=== PATIENT | female | born 1950 | race Hispanic/Latino ===

== ENCOUNTER 2017-07-09 15:54 | Inpatient (IN) | payer MEDICARE ==
[~2017-07-09] VITALS: Ht 157.5 cm; Wt 97.8 kg
[~2017-07-09 15:54] MED LIST: ACET-66 PO; AMOX-420 PO; ASPI-1197 PO; CALC667C10 PO; CARV3.12 PO; CYAN10009 PO; DOXY100C40 PO; ESCI20TA36 PO; FOLI0.8T22 PO; LORA10TA7 PO; LOSA25TA21 PO; METO50TA18 PO; PRAV40TA3 PO; SEVE800T7 PO; TRAZ-144 PO
[2017-07-09 17:33] LABS: BASOPHILS % (AUTO) 0.8 % (0.0-5.0); EOSINOPHILS % (AUTO) 5.3 % (0.0-8.0); HEMATOCRIT 33.2 % (36-48); LYMPHOCYTES % (AUTO) 27.8 % (21.0-51.0); MEAN CORPUSCULAR HEMOGLOBIN 31.1 pg (27.0-33.0); MEAN CORPUSCULAR HGB CONC 32.1 g/dL (32.0-36.0); MEAN CORPUSCULAR VOLUME 97.1 fL (79-99); MONOCYTES % (AUTO) 7.6 % (3.0-13.0); NEUTROPHILS % (AUTO) 58.5 % (40.0-77.0); PLATELET COUNT (AUTO) 117 K/uL (130-400); RED BLOOD CELL COUNT(AUTO) 3.42 MIL/uL (4.00-5.50); WHITE BLOOD COUNT (AUTO) 8.1 K/uL (4.8-10.8)
[2017-07-09 17:40] LABS: CREATININE 6.5 mg/dL (0.5-1.5); POTASSIUM 4.7 mmol/L (3.5-5.1)
[2017-07-09 17:45] LABS: ALBUMIN 2.6 g/dL (3.5-5.0); BILIRUBIN,TOTAL 0.5 mg/dL (0.2-1.0); TOTAL PROTEIN, SERUM 7.5 g/dL (6.0-8.3)
[2017-07-09] MEDS ORDERED: ACETAMINOPHEN 325 MG TAB ONE (19:35)
[2017-07-09] MEDS ORDERED: IPRATROPIUM/ALBUTEROL SULFATE 3 ML SOLUTION IH ONE (19:56)
[2017-07-09] MEDS ORDERED: DEXTROSE 50%-WATER 50 ML DISP.SYRIN IV PRN (20:30)
[2017-07-09] MEDS ORDERED: GLUCAGON 1MG KIT 1 MG ML IM PRN (20:30)
[2017-07-09] MEDS ORDERED: COMPOUND IV REFRIGERATED 1 EACH IVSOLN MISC PRN (20:30)
[2017-07-09] MEDS ORDERED: VANCOMYCIN PROTOCOL PER PHARMACY IV SCH (20:30)
[2017-07-09 20:55] VITALS: BP 136/73
[2017-07-09] MEDS ORDERED: VANCOMYCIN 2 GM in SODIUM CHLORIDE 0.9% 500ML 500 ML IV ONE (21:00)
[2017-07-09] MEDS: INSULIN R PO SS1 SQ SCH (21:00)
[2017-07-09] MEDS ORDERED: FOLI1TAB15 PO (21:34)
[2017-07-09] MEDS ORDERED: LOSA50TA37 PO (21:34)
[2017-07-09] MEDS ORDERED: BIOT10005 PO (21:34)
[2017-07-09] MEDS ORDERED: SEVE800T7 PO (21:34)
[2017-07-09] MEDS: LEVOFLOXACIN 250 MG/D5W 50ML 50 ML IVPB SCH (22:14)
[2017-07-10] VITALS: BP 142/60
[2017-07-10 04:00] VITALS: BP 142/76
[2017-07-10 04:56] LABS: HEMATOCRIT 32.8 % (36-48); MEAN CORPUSCULAR HEMOGLOBIN 31.5 pg (27.0-33.0); MEAN CORPUSCULAR HGB CONC 32.6 g/dL (32.0-36.0); MEAN CORPUSCULAR VOLUME 96.5 fL (79-99); PLATELET COUNT (AUTO) 111 K/uL (130-400); RED BLOOD CELL COUNT(AUTO) 3.39 MIL/uL (4.00-5.50); RED CELL DISTRIBUTION WIDTH 16.7 % (11.0-15.5); WHITE BLOOD COUNT (AUTO) 9.1 K/uL (4.8-10.8)
[2017-07-10 05:10] LABS: CREATININE 7.2 mg/dL (0.5-1.5)
[2017-07-10] MEDS: INSULIN R PO SS1 SQ SCH ×4 (06:50→20:51)
[2017-07-10 08:33] VITALS: BP 140/74
[2017-07-10] MEDS ORDERED: ACETAMINOPHEN EXTRA STRENGTH 500 MG TABLET PO PRN (09:00)
[2017-07-10] MEDS: OSELTAMIVIR PHOSPHATE 75 MG CAP PO SCH (09:00)
[2017-07-10] MEDS ORDERED: CALCIUM ACETATE 667 MG CAPSULE PO SCH (09:00)
[2017-07-10] MEDS: ASPIRIN 81MG TAB.CHEW PO SCH (09:35)
[2017-07-10] MEDS: METOPROLOL TARTRATE 50 MG TAB PO SCH ×2 (09:35→19:29)
[2017-07-10] MEDS: CYANOCOBALAMIN (VITAMIN B-12) 1,000 MCG TABLET PO SCH (09:35)
[2017-07-10] MEDS: LOSARTAN 50 MG TABLET PO SCH (09:35)
[2017-07-10] MEDS: CITALOPRAM 20 MG TABLET PO SCH (09:35)
[2017-07-10] MEDS: LORATADINE 10 MG TABLET PO SCH (09:35)
[2017-07-10] MEDS: FOLIC ACID 1 MG TABLET PO SCH (09:35)
[2017-07-10] MEDS: VITAMIN B COMPLEX 1 CAPSULE PO SCH (09:36)
[2017-07-10] MEDS ORDERED: COMPOUND PO MISCELLANEOUS 1 EACH MISC MISC PRN (10:15)
[2017-07-10] MEDS: OSELTAMIVIR PHOSPHATE PO SCH ×2 (10:31)
[2017-07-10] MEDS: [UNRECOGNIZED DRUG - OTHER] PO SCH ×2 (10:31)
[2017-07-10] MEDS: CALCIUM ACETATE 667 MG CAPSULE PO SCH ×2 (11:42→17:03)
[2017-07-10 12:00] VITALS: BP 140/70
[2017-07-10] MEDS ORDERED: SEVELAMER HCL 800 MG TABLET PO SCH (12:00)
[2017-07-10 16:56] VITALS: BP 139/74
[2017-07-10] MEDS ORDERED: TRAZODONE HCL 50 MG TAB ONE (19:23)
[2017-07-10] MEDS: ATORVASTATIN CALCIUM 20 MG TABLET PO SCH (19:29)
[2017-07-10] MEDS: TRAZODONE HCL 50 MG TAB PO SCH (19:29)
[2017-07-10] MEDS: LEVOFLOXACIN 250 MG/D5W 50ML 50 ML IVPB SCH (19:29)
[2017-07-10 20:25] VITALS: BP 152/58
[2017-07-11] VITALS (7 sets, daily range): BP systolic 113–148; BP diastolic 46–73
[2017-07-11 04:37] LABS: HEMATOCRIT 31.6 % (36-48); MEAN CORPUSCULAR HEMOGLOBIN 31.3 pg (27.0-33.0); MEAN CORPUSCULAR HGB CONC 32.7 g/dL (32.0-36.0); MEAN CORPUSCULAR VOLUME 95.5 fL (79-99); PLATELET COUNT (AUTO) 114 K/uL (130-400); RED BLOOD CELL COUNT(AUTO) 3.31 MIL/uL (4.00-5.50); RED CELL DISTRIBUTION WIDTH 16.6 % (11.0-15.5)
[2017-07-11 04:45] LABS: PHOSPHORUS 5.5 mg/dL (2.5-4.9); POTASSIUM 4.6 mmol/L (3.5-5.1)
[2017-07-11 04:57] LABS: CREATININE 8.8 mg/dL (0.5-1.5)
[2017-07-11 05:32] LABS: BAND NEUTROPHILS % (MANUAL) 3 % (0-2); EOSINOPHILS % (MANUAL) 10 % (1-6); LYMPHOCYTES % (MANUAL) 22 % (22-44); MONOCYTES % (MANUAL) 5 % (2-9); REACTIVE LYMPHOCYTES 3 % (0-0); SEGMENTED NEUTROPHILS % 57 % (40-70)
[2017-07-11 05:33] LABS: MAN.DIFF COMMENT-IMPRESSION MANUAL DIFFERENTIAL
[2017-07-11] MEDS: INSULIN R PO SS1 SQ SCH ×4 (05:36→22:30)
[2017-07-11] MEDS: CALCIUM ACETATE 667 MG CAPSULE PO SCH ×3 (08:12→17:04)
[2017-07-11] MEDS: CYANOCOBALAMIN (VITAMIN B-12) 1,000 MCG TABLET PO SCH (08:12)
[2017-07-11] MEDS: VITAMIN B COMPLEX 1 CAPSULE PO SCH (08:13)
[2017-07-11] MEDS: METOPROLOL TARTRATE 50 MG TAB PO SCH ×2 (08:13→22:10)
[2017-07-11] MEDS: LORATADINE 10 MG TABLET PO SCH (08:13)
[2017-07-11] MEDS: ASPIRIN 81MG TAB.CHEW PO SCH (08:13)
[2017-07-11] MEDS: CITALOPRAM 20 MG TABLET PO SCH (08:13)
[2017-07-11] MEDS: FOLIC ACID 1 MG TABLET PO SCH (08:13)
[2017-07-11] MEDS: OSELTAMIVIR PHOSPHATE 75 MG CAP PO SCH (08:14)
[2017-07-11] MEDS: LOSARTAN 50 MG TABLET PO SCH (08:14)
[2017-07-11] MEDS: [UNRECOGNIZED DRUG - OTHER] PO SCH ×2 (09:00)
[2017-07-11] MEDS: OSELTAMIVIR PHOSPHATE PO SCH ×2 (09:00)
[2017-07-11] MEDS ORDERED: HEPARIN SODIUM 5000UNIT/ML 1ML VIAL IJ PRN (11:45)
[2017-07-11] MEDS ORDERED: SODIUM CHLORIDE 0.9% 1000ML 1,000 ML IV PRN (11:45)
[2017-07-11] MEDS ORDERED: ALBUMIN (HUMAN) 25% 100 ML IV PRN (11:45)
[2017-07-11] MEDS ORDERED: VANCOMYCIN 1GM+NS 250ML 250 ML IV SCH (13:00)
[2017-07-11] MEDS ORDERED: HYDROXYZINE HCL 25 MG TABLET PO PRN (16:30)
[2017-07-11] MEDS: BENZONATATE 100 MG CAPSULE PO SCH (22:10)
[2017-07-11] MEDS: TRAZODONE HCL 50 MG TAB PO SCH (22:10)
[2017-07-11] MEDS: ATORVASTATIN CALCIUM 20 MG TABLET PO SCH (22:10)
[2017-07-11] MEDS: LEVOFLOXACIN 250 MG/D5W 50ML 50 ML IVPB SCH (22:10)
[2017-07-11] MEDS: NYSTATIN 15 GM POWDER TP SCH (22:10)
[2017-07-12 04:27] VITALS: BP 121/55
[2017-07-12 05:55] LABS: MEAN CORPUSCULAR HEMOGLOBIN 32.3 pg (27.0-33.0); MEAN CORPUSCULAR HGB CONC 33.4 g/dL (32.0-36.0); MEAN CORPUSCULAR VOLUME 96.8 fL (79-99); PLATELET COUNT (AUTO) 102 K/uL (130-400); RED BLOOD CELL COUNT(AUTO) 3.31 MIL/uL (4.00-5.50); WHITE BLOOD COUNT (AUTO) 7.5 K/uL (4.8-10.8)
[2017-07-12 06:12] LABS: CREATININE 7.3 mg/dL (0.5-1.5); POTASSIUM 4.2 mmol/L (3.5-5.1)
[2017-07-12 07:00] VITALS: BP 126/70
[2017-07-12] MEDS: INSULIN R PO SS1 SQ SCH ×4 (07:13→20:47)
[2017-07-12] MEDS: OSELTAMIVIR PHOSPHATE PO SCH ×2 (09:00)
[2017-07-12] MEDS: [UNRECOGNIZED DRUG - OTHER] PO SCH ×2 (09:00)
[2017-07-12] MEDS: OSELTAMIVIR PHOSPHATE 75 MG CAP PO SCH (09:13)
[2017-07-12] MEDS: CALCIUM ACETATE 667 MG CAPSULE PO SCH ×3 (09:13→16:20)
[2017-07-12] MEDS: VITAMIN B COMPLEX 1 CAPSULE PO SCH (09:14)
[2017-07-12] MEDS: LORATADINE 10 MG TABLET PO SCH (09:14)
[2017-07-12] MEDS: FOLIC ACID 1 MG TABLET PO SCH (09:14)
[2017-07-12] MEDS: METOPROLOL TARTRATE 50 MG TAB PO SCH ×2 (09:14→19:59)
[2017-07-12] MEDS: ASPIRIN 81MG TAB.CHEW PO SCH (09:14)
[2017-07-12] MEDS: CYANOCOBALAMIN (VITAMIN B-12) 1,000 MCG TABLET PO SCH (09:14)
[2017-07-12] MEDS: CITALOPRAM 20 MG TABLET PO SCH (09:14)
[2017-07-12] MEDS: BENZONATATE 100 MG CAPSULE PO SCH ×2 (09:14→19:59)
[2017-07-12] MEDS: LOSARTAN 50 MG TABLET PO SCH (09:14)
[2017-07-12] MEDS: NYSTATIN 15 GM POWDER TP SCH ×2 (09:15→20:49)
[2017-07-12 11:00] VITALS: BP 101/53
[2017-07-12] MEDS ORDERED: VANCOMYCIN 1GM+NS 250ML 250 ML IV SCH (15:00)
[2017-07-12 16:00] VITALS: BP 120/67
[2017-07-12 19:29] VITALS: BP 142/59
[2017-07-12] MEDS: LEVOFLOXACIN 250 MG/D5W 50ML 50 ML IVPB SCH (19:59)
[2017-07-12] MEDS: TRAZODONE HCL 50 MG TAB PO SCH (19:59)
[2017-07-12] MEDS: ATORVASTATIN CALCIUM 20 MG TABLET PO SCH (19:59)
[2017-07-12 23:25] VITALS: BP 120/59
[2017-07-13 04:51] VITALS: BP 106/60
[2017-07-13 05:11] LABS: HEMATOCRIT 32.9 % (36-48); MEAN CORPUSCULAR HEMOGLOBIN 30.9 pg (27.0-33.0); MEAN CORPUSCULAR VOLUME 96.6 fL (79-99); PLATELET COUNT (AUTO) 115 K/uL (130-400); RED BLOOD CELL COUNT(AUTO) 3.41 MIL/uL (4.00-5.50); RED CELL DISTRIBUTION WIDTH 16.6 % (11.0-15.5); WHITE BLOOD COUNT (AUTO) 8.8 K/uL (4.8-10.8)
[2017-07-13 05:24] LABS: BAND NEUTROPHILS % (MANUAL) 5 % (0-2); EOSINOPHILS % (MANUAL) 5 % (1-6); LYMPHOCYTES % (MANUAL) 30 % (22-44); MAN.DIFF COMMENT-IMPRESSION MANUAL DIFFERENTIAL; MONOCYTES % (MANUAL) 3 % (2-9); PLATELET MORPHOLOGY COMMENT SLIGHTLY DECREASED; POTASSIUM 4.7 mmol/L (3.5-5.1); SEGMENTED NEUTROPHILS % 57 % (40-70)
[2017-07-13 05:32] LABS: CREATININE 8.9 mg/dL (0.5-1.5)
[2017-07-13] MEDS: INSULIN R PO SS1 SQ SCH ×2 (06:48→12:06)
[2017-07-13 08:00] VITALS: BP 123/67
[2017-07-13] MEDS: OSELTAMIVIR PHOSPHATE PO SCH ×2 (09:00)
[2017-07-13] MEDS: [UNRECOGNIZED DRUG - OTHER] PO SCH ×2 (09:00)
[2017-07-13] MEDS: CALCIUM ACETATE 667 MG CAPSULE PO SCH ×2 (09:36→12:15)
[2017-07-13] MEDS: ASPIRIN 81MG TAB.CHEW PO SCH (09:36)
[2017-07-13] MEDS: VITAMIN B COMPLEX 1 CAPSULE PO SCH (09:36)
[2017-07-13] MEDS: LOSARTAN 50 MG TABLET PO SCH (09:37)
[2017-07-13] MEDS: CYANOCOBALAMIN (VITAMIN B-12) 1,000 MCG TABLET PO SCH (09:37)
[2017-07-13] MEDS: METOPROLOL TARTRATE 50 MG TAB PO SCH (09:37)
[2017-07-13] MEDS: OSELTAMIVIR PHOSPHATE 75 MG CAP PO SCH (09:37)
[2017-07-13] MEDS: CITALOPRAM 20 MG TABLET PO SCH (09:37)
[2017-07-13] MEDS: FOLIC ACID 1 MG TABLET PO SCH (09:37)
[2017-07-13] MEDS: LORATADINE 10 MG TABLET PO SCH (09:37)
[2017-07-13] MEDS: BENZONATATE 100 MG CAPSULE PO SCH (09:38)
[2017-07-13] MEDS: NYSTATIN 15 GM POWDER TP SCH (09:40)
[2017-07-13 11:58] VITALS: BP 142/73
[2017-07-13] MEDS ORDERED: OSEL30CA2 PO (13:48)
[2017-07-13 15:30] VITALS: BP 128/73
[2017-07-13] MEDS ORDERED: VANCOMYCIN 1GM+NS 250ML 250 ML IV SCH (21:00)
[2017-07-14] MEDS ORDERED: VANCOMYCIN 1GM+NS 250ML 250 ML IV SCH (07:11)
== END 2017-07-13 15:45 | disposition home or self-care (01) | DRG 193 ==
LOC: EDH 15:54 → UNDOADMOB 19:52 → EDHIP 19:52 → 4BH 20:52 → EDHIP 20:52 → INTOOBSV 07-10 21:31 → OBSVTOIN 07-10 21:31
PROVIDERS: ADMIT Internal Medicine Nephrology; ATTEND Internal Medicine Nephrology
PROC: 5A1D70Z Performance of Urinary Filtration, Intermittent, Less than 6 Hours Per Day (ICD-10-PCS; principal; 2017-07-11)
DX: J11.00 Influenza due to unidentified influenza virus with unspecified type of pneumonia (principal); N18.6 End stage renal disease; D89.9 Disorder involving the immune mechanism, unspecified; E11.21 Type 2 diabetes mellitus with diabetic nephropathy; E11.42 Type 2 diabetes mellitus with diabetic polyneuropathy; J90 Pleural effusion, not elsewhere classified; I12.0 Hypertensive chronic kidney disease with stage 5 chronic kidney disease or end stage renal disease; E11.22 Type 2 diabetes mellitus with diabetic chronic kidney disease; E11.52 Type 2 diabetes mellitus with diabetic peripheral angiopathy with gangrene; L03.90 Cellulitis, unspecified; E66.01 Morbid (severe) obesity due to excess calories; E78.00 Pure hypercholesterolemia, unspecified; E78.5 Hyperlipidemia, unspecified; Z99.2 Dependence on renal dialysis; Z91.19 Patient's noncompliance with other medical treatment and regimen; Z91.15 Patient's noncompliance with renal dialysis; Z68.39 Body mass index [BMI] 39.0-39.9, adult; Z83.3 Family history of diabetes mellitus; Z82.49 Family history of ischemic heart disease and other diseases of the circulatory system
CPT/HCPCS: 36415; 71046; 73630; 80048; 80053; 80202; 82948; 84100; 85025; 85027; 85651; 87804; 90935; 93926; 93971; 94640; G0378; J1644; J1815; J1956; J3370; J7030; J7040

== ENCOUNTER 2017-08-24 15:43 | Inpatient (IN) | payer MEDICARE ==
[~2017-08-24] VITALS: Ht 157.5 cm; Wt 95.8 kg
[~2017-08-24 15:43] MED LIST changes: -AMOX-420 PO; +BIOT10005 PO; -DOXY100C40 PO; +FOLI1TAB15 PO; -LOSA25TA21 PO; +LOSA50TA37 PO; -METO50TA18 PO; +OSEL30CA2 PO; -TRAZ-144 PO; +TRAZ-185 PO
[2017-08-24 16:11] LABS: BASOPHILS % (AUTO) 0.8 % (0.0-5.0); EOSINOPHILS % (AUTO) 3.4 % (0.0-8.0); HEMATOCRIT 32.8 % (36-48); LYMPHOCYTES % (AUTO) 21.8 % (21.0-51.0); MEAN CORPUSCULAR HEMOGLOBIN 31.5 pg (27.0-33.0); MEAN CORPUSCULAR HGB CONC 32.8 g/dL (32.0-36.0); MEAN CORPUSCULAR VOLUME 96.1 fL (79-99); MONOCYTES % (AUTO) 6.2 % (3.0-13.0); NEUTROPHILS % (AUTO) 67.8 % (40.0-77.0); PLATELET COUNT (AUTO) 140 K/uL (130-400); RED BLOOD CELL COUNT(AUTO) 3.41 MIL/uL (4.00-5.50); RED CELL DISTRIBUTION WIDTH 19.1 % (11.0-15.5)
[2017-08-24] MEDS ORDERED: ASPIRIN 325 MG TABLET ONE (16:11)
[2017-08-24] MEDS ORDERED: FUROSEMIDE 10 MG/ML 4ML VIAL ONE (16:12)
[2017-08-24 16:22] LABS: INR 1.02 (0.85-1.15); PARTIAL THROMBOPLASTIN TIME 35.6 SEC (26.3-35.5); PROTHROMBIN TIME 10.7 SEC (9.6-11.6)
[2017-08-24 16:35] LABS: B-TYPE NATRIURETIC PEPTIDE 2750 pg/mL (0-100)
[2017-08-24 16:37] LABS: ALBUMIN 2.9 g/dL (3.5-5.0); BILIRUBIN,TOTAL 0.6 mg/dL (0.2-1.0); CREATINE KINASE MB 2.4 ng/mL (0.5-3.6); TOTAL PROTEIN, SERUM 7.9 g/dL (6.0-8.3)
[2017-08-24 16:42] LABS: CREATININE 11.6 mg/dL (0.5-1.5)
[2017-08-24] MEDS ORDERED: CALCIUM GLUCONATE 1 GM/10 ML VIAL IV ONE (18:12)
[2017-08-24] MEDS ORDERED: SODIUM BICARB 50MEQ 50ML VIAL ONE (18:13)
[2017-08-24] MEDS ORDERED: DEXTROSE 50%-WATER 50 ML DISP.SYRIN IV ONE (18:13)
[2017-08-24] MEDS ORDERED: INSULIN HUMULIN R 100 UNIT/ML 3ML ONE (18:14)
[2017-08-24 19:00] VITALS: BP 177/104
[2017-08-24] MEDS ORDERED: IPRATROPIUM/ALBUTEROL SULFATE 3 ML SOLUTION IH PRN (19:30)
[2017-08-24] MEDS ORDERED: ONDANSETRON HCL MDV 20ML 2 MG/ML VIAL IVP PRN (19:45)
[2017-08-24] MEDS ORDERED: GLUCAGON 1MG KIT 1 MG ML IM PRN (19:45)
[2017-08-24] MEDS ORDERED: DEXTROSE 50%-WATER 50 ML DISP.SYRIN IV PRN (19:45)
[2017-08-24] MEDS ORDERED: MEROPENEM 500 MG VIAL IVP SCH (20:00)
[2017-08-24] MEDS ORDERED: VANCOMYCIN PROTOCOL PER PHARMACY IV SCH (20:00)
[2017-08-24] MEDS ORDERED: COMPOUND IV REFRIGERATED 1 EACH IVSOLN MISC PRN (20:00)
[2017-08-24] MEDS ORDERED: SODIUM POLYSTYRENE SULFONATE 15 GM/60 ML ML PO ONE (20:30)
[2017-08-24] MEDS: MUPIROCIN OINTMENT 22 GM TUBE TP SCH (20:47)
[2017-08-24] MEDS: ACETAMINOPHEN 325 MG TAB PO PRN (20:47)
[2017-08-24] MEDS: INSULIN R PO SS1 SQ SCH (21:00)
[2017-08-24 23:20] VITALS: BP 156/81
[2017-08-24] MEDS: MEROPENEM 500 MG VIAL IVP SCH (23:35)
[2017-08-25] MEDS ORDERED: VANCOMYCIN 1.5 GM in SODIUM CHLORIDE 0.9% 250 ML IV ONE ×2
[2017-08-25 03:35] VITALS: BP 144/82
[2017-08-25 04:25] LABS: BASOPHILS % (AUTO) 1.1 % (0.0-5.0); HEMATOCRIT 33.9 % (36-48); LYMPHOCYTES % (AUTO) 22.1 % (21.0-51.0); MEAN CORPUSCULAR HEMOGLOBIN 31.8 pg (27.0-33.0); MEAN CORPUSCULAR VOLUME 96.4 fL (79-99); MONOCYTES % (AUTO) 7.3 % (3.0-13.0); NEUTROPHILS % (AUTO) 65.5 % (40.0-77.0); PLATELET COUNT (AUTO) 145 K/uL (130-400); RED BLOOD CELL COUNT(AUTO) 3.52 MIL/uL (4.00-5.50); RED CELL DISTRIBUTION WIDTH 18.8 % (11.0-15.5); WHITE BLOOD COUNT (AUTO) 8.9 K/uL (4.8-10.8)
[2017-08-25 04:33] LABS: POTASSIUM 5.4 mmol/L (3.5-5.1)
[2017-08-25 04:38] LABS: CREATININE 9.2 mg/dL (0.5-1.5)
[2017-08-25] MEDS: ACETAMINOPHEN 325 MG TAB PO PRN ×2 (05:29→09:37)
[2017-08-25] MEDS: INSULIN R PO SS1 SQ SCH ×4 (05:49→21:44)
[2017-08-25 08:04] VITALS: BP 151/76
[2017-08-25] MEDS ORDERED: PANTOPRAZOLE 40 MG/VIAL IVP SCH (09:00)
[2017-08-25] MEDS: MUPIROCIN OINTMENT 22 GM TUBE TP SCH ×2 (09:38→21:46)
[2017-08-25 12:00] VITALS: BP 153/70
[2017-08-25 17:36] VITALS: BP 122/50
[2017-08-25] MEDS: VANCOMYCIN 1GM+NS 250ML 250 ML IV NR (18:44)
[2017-08-25 19:28] VITALS: BP 127/52
[2017-08-25] MEDS ORDERED: MEROPENEM 500 MG VIAL IVP PRN (21:00)
[2017-08-25] MEDS: TRAMADOL HCL 50 MG TABLET PO PRN (22:28)
[2017-08-25] MEDS: MEROPENEM 500 MG VIAL IVP SCH (22:31)
[2017-08-25 23:33] VITALS: BP 130/72
[2017-08-26 03:59] VITALS: BP 126/62
[2017-08-26 04:30] LABS: MEAN CORPUSCULAR HEMOGLOBIN 31.4 pg (27.0-33.0); MEAN CORPUSCULAR HGB CONC 32.5 g/dL (32.0-36.0); MEAN CORPUSCULAR VOLUME 96.5 fL (79-99); PLATELET COUNT (AUTO) 134 K/uL (130-400); RED BLOOD CELL COUNT(AUTO) 3.42 MIL/uL (4.00-5.50); RED CELL DISTRIBUTION WIDTH 18.7 % (11.0-15.5); WHITE BLOOD COUNT (AUTO) 8.6 K/uL (4.8-10.8)
[2017-08-26 04:55] LABS: CREATININE 7.8 mg/dL (0.5-1.5); PHOSPHORUS 5.6 mg/dL (2.5-4.9); POTASSIUM 4.6 mmol/L (3.5-5.1)
[2017-08-26] MEDS: TRAMADOL HCL 50 MG TABLET PO PRN ×2 (05:53→19:21)
[2017-08-26] MEDS: INSULIN R PO SS1 SQ SCH ×3 (06:45→21:00)
[2017-08-26 07:20] VITALS: BP 147/72
[2017-08-26] MEDS: PANTOPRAZOLE SODIUM 40 MG TABLET.DR PO SCH (08:35)
[2017-08-26] MEDS: MUPIROCIN OINTMENT 22 GM TUBE TP SCH ×2 (09:45→19:21)
[2017-08-26 11:15] VITALS: BP 144/69
[2017-08-26 16:05] VITALS: BP 136/73
[2017-08-26 19:04] VITALS: BP 151/84
[2017-08-26 23:09] VITALS: BP 131/78
[2017-08-26] MEDS: MEROPENEM 500 MG VIAL IVP SCH (23:59)
[2017-08-27 03:15] VITALS: BP 138/76
[2017-08-27 04:54] LABS: MEAN CORPUSCULAR HEMOGLOBIN 30.8 pg (27.0-33.0); MEAN CORPUSCULAR HGB CONC 31.8 g/dL (32.0-36.0); MEAN CORPUSCULAR VOLUME 96.9 fL (79-99); NUCLEATED RED BLOOD CELLS 0.3 % (0.0-0.19); PLATELET COUNT (AUTO) 135 K/uL (130-400); RED BLOOD CELL COUNT(AUTO) 3.92 MIL/uL (4.00-5.50); RED CELL DISTRIBUTION WIDTH 18.6 % (11.0-15.5); WHITE BLOOD COUNT (AUTO) 10.9 K/uL (4.8-10.8)
[2017-08-27 05:14] LABS: POTASSIUM 5.1 mmol/L (3.5-5.1)
[2017-08-27 05:17] LABS: CREATININE 9.5 mg/dL (0.5-1.5)
[2017-08-27] MEDS: INSULIN R PO SS1 SQ SCH ×4 (05:40→21:00)
[2017-08-27 07:20] VITALS: BP 136/76
[2017-08-27] MEDS ORDERED: SODIUM CHLORIDE 0.9% 1000ML 1,000 ML IV ONE (07:31)
[2017-08-27] MEDS: MUPIROCIN OINTMENT 22 GM TUBE TP SCH ×2 (09:00→19:53)
[2017-08-27] MEDS: PANTOPRAZOLE SODIUM 40 MG TABLET.DR PO SCH (11:34)
[2017-08-27] MEDS: TRAMADOL HCL 50 MG TABLET PO PRN (11:43)
[2017-08-27 11:50] VITALS: BP 114/59
[2017-08-27] MEDS ORDERED: HYDROXYZINE HCL 25 MG TABLET PO PRN (13:30)
[2017-08-27] MEDS: VANCOMYCIN 1GM+NS 250ML 250 ML IV NR (14:55)
[2017-08-27 16:15] VITALS: BP 136/65
[2017-08-27 19:31] VITALS: BP 133/86
[2017-08-27] MEDS: CARVEDILOL 3.125 MG TABLET PO SCH (21:01)
[2017-08-27 23:12] VITALS: BP 127/71
[2017-08-28] MEDS: MEROPENEM 500 MG VIAL IVP SCH (00:47)
[2017-08-28 03:10] VITALS: BP 122/82
[2017-08-28 04:39] LABS: HEMATOCRIT 33.7 % (36-48); MEAN CORPUSCULAR HEMOGLOBIN 31.4 pg (27.0-33.0); MEAN CORPUSCULAR HGB CONC 32.5 g/dL (32.0-36.0); MEAN CORPUSCULAR VOLUME 96.7 fL (79-99); PLATELET COUNT (AUTO) 171 K/uL (130-400); RED BLOOD CELL COUNT(AUTO) 3.49 MIL/uL (4.00-5.50); RED CELL DISTRIBUTION WIDTH 18.6 % (11.0-15.5)
[2017-08-28 04:57] LABS: CREATININE 8.2 mg/dL (0.5-1.5)
[2017-08-28] MEDS: INSULIN R PO SS1 SQ SCH ×3 (05:22→16:30)
[2017-08-28 08:00] VITALS: BP 147/72
[2017-08-28] MEDS ORDERED: ASPIRIN 81MG TAB.CHEW PO SCH (09:00)
[2017-08-28] MEDS: MUPIROCIN OINTMENT 22 GM TUBE TP SCH (09:00)
[2017-08-28] MEDS ORDERED: LOSARTAN 50 MG TABLET PO SCH (09:00)
[2017-08-28] MEDS: PANTOPRAZOLE SODIUM 40 MG TABLET.DR PO SCH (09:33)
[2017-08-28] MEDS: CARVEDILOL 3.125 MG TABLET PO SCH (09:34)
[2017-08-28 11:23] VITALS: BP 135/73
[2017-08-28] MEDS ORDERED: VITA150T PO (13:21)
[2017-08-28] MEDS ORDERED: LOSA25TA21 PO (13:21)
[2017-08-28] MEDS ORDERED: METO50TA18 PO (13:21)
[2017-08-28] MEDS ORDERED: SEVE800T7 PO (13:21)
[2017-08-28] MEDS ORDERED: LEVOFLOXACIN 500 MG TABLET PO SCH (13:30)
[2017-08-28] MEDS ORDERED: SULFAMETHOX-TMP DS 800/160 TAB PO SCH (13:30)
[2017-08-28] MEDS ORDERED: HONEY 1 APPL/ML TUBE TP SCH (15:00)
[2017-08-28 16:00] VITALS: BP 115/69
== END 2017-08-28 18:27 | disposition home or self-care (01) | DRG 291 ==
LOC: EDH 15:43 → EDHIP 16:05 → 2DH 18:29
PROVIDERS: ADMIT Internal Medicine Nephrology; ATTEND Internal Medicine Nephrology
PROC: 5A1D70Z Performance of Urinary Filtration, Intermittent, Less than 6 Hours Per Day (ICD-10-PCS; principal; 2017-08-24)
PROC: 5A1D70Z Performance of Urinary Filtration, Intermittent, Less than 6 Hours Per Day (ICD-10-PCS; 2017-08-25)
PROC: 5A1D70Z Performance of Urinary Filtration, Intermittent, Less than 6 Hours Per Day (ICD-10-PCS; 2017-08-28)
DX: I13.2 Hypertensive heart and chronic kidney disease with heart failure and with stage 5 chronic kidney disease, or end stage renal disease (principal); N18.6 End stage renal disease; E11.21 Type 2 diabetes mellitus with diabetic nephropathy; E11.51 Type 2 diabetes mellitus with diabetic peripheral angiopathy without gangrene; E87.5 Hyperkalemia; L03.115 Cellulitis of right lower limb; I50.43 Acute on chronic combined systolic (congestive) and diastolic (congestive) heart failure; L03.116 Cellulitis of left lower limb; D64.9 Anemia, unspecified; E11.22 Type 2 diabetes mellitus with diabetic chronic kidney disease; E11.622 Type 2 diabetes mellitus with other skin ulcer; E66.9 Obesity, unspecified; E78.5 Hyperlipidemia, unspecified; I25.10 Atherosclerotic heart disease of native coronary artery without angina pectoris; I34.0 Nonrheumatic mitral (valve) insufficiency; I25.5 Ischemic cardiomyopathy; Z68.38 Body mass index [BMI] 38.0-38.9, adult; Z91.19 Patient's noncompliance with other medical treatment and regimen; Z99.2 Dependence on renal dialysis
CPT/HCPCS: 36415; 71045; 80048; 80053; 80202; 82550; 82553; 82948; 83874; 83880; 84100; 84132; 84484; 85025; 85027; 85610; 85730; 87040; 87070; 87076; 87077; 87186; 90935; 93005; 93925; 93970; 94664; 94760; 99291; A4218; C9113; J0610; J1815; J1940; J2185; J3370; J3490; J7030; J7070

== ENCOUNTER 2017-09-15 11:04 | Emergency (ER) | payer MEDICARE ==
[~2017-09-15 11:04] MED LIST changes: -ACET-66 PO; -BIOT10005 PO; -CALC667C10 PO; -CARV3.12 PO; -CYAN10009 PO; -LORA10TA7 PO; -LOSA50TA37 PO; +METO50TA18 PO; -OSEL30CA2 PO; +VITA150T PO
[2017-09-15 11:54] LABS: BASOPHILS % (AUTO) 0.6 % (0.0-5.0); EOSINOPHILS % (AUTO) 5.5 % (0.0-8.0); HEMATOCRIT 31.5 % (36-48); LYMPHOCYTES % (AUTO) 19.1 % (21.0-51.0); MEAN CORPUSCULAR VOLUME 96.7 fL (79-99); MONOCYTES % (AUTO) 6.3 % (3.0-13.0); NEUTROPHILS % (AUTO) 68.5 % (40.0-77.0); PLATELET COUNT (AUTO) 217 K/uL (130-400); RED BLOOD CELL COUNT(AUTO) 3.26 MIL/uL (4.00-5.50); RED CELL DISTRIBUTION WIDTH 18.8 % (11.0-15.5); WHITE BLOOD COUNT (AUTO) 9.3 K/uL (4.8-10.8)
[2017-09-15 12:12] LABS: CREATININE 6.9 mg/dL (0.5-1.5); POTASSIUM 4.3 mmol/L (3.5-5.1)
[2017-09-15 12:16] LABS: ALBUMIN 2.8 g/dL (3.5-5.0); BILIRUBIN,TOTAL 0.5 mg/dL (0.2-1.0); TOTAL PROTEIN, SERUM 7.7 g/dL (6.0-8.3)
== END 2017-09-15 14:41 | disposition home or self-care (01) ==
LOC: EDH 11:04
DX: I95.3 Hypotension of hemodialysis (principal); R41.82 Altered mental status, unspecified; E11.22 Type 2 diabetes mellitus with diabetic chronic kidney disease; I12.0 Hypertensive chronic kidney disease with stage 5 chronic kidney disease or end stage renal disease; N18.6 End stage renal disease; E78.5 Hyperlipidemia, unspecified; Z99.2 Dependence on renal dialysis
CPT/HCPCS: 36415; 70450; 71045; 80053; 84484; 85025; 93005

== ENCOUNTER 2018-01-28 12:58 | Emergency (ER) | payer MEDICARE ==
[~2018-01-28 12:58] MED LIST changes: +ACET-2247 PO; +AMIODARONE HCL 50 MG/ML 3 ML VIAL IV ONE; +AMOX-429 PO; +ATROPINE SULFATE 0.1 MG/ML 10 ML SYG IVP ONE; +CALCIUM CHLORIDE 100 MG/ML 10 ML SYG IVP ONE; +CARV12.511 PO; +DEXTROSE 50%-WATER 50 ML DISP.SYRIN IV ONE; +EPINEPHRINE 0.1 MG/ML 10 ML SYG IVP ONE; -FOLI0.8T22 PO; +LOSA25TA16 PO; -METO50TA18 PO; +SODIUM BICARB 8.4% 50ML SYRINGE IVP ONE; +SUCCINYLCHOLINE CHLORIDE 20 MG/ML 10 ML VIAL IVP ONE; -VITA150T PO
[2018-01-28] MEDS ORDERED: INSULIN HUMULIN R 100 UNIT/ML 3ML ONE (13:53)
[2018-01-28 14:08] LABS: EOSINOPHILS % (AUTO) 0.5 % (0.0-8.0); HEMATOCRIT 39.9 % (36-48); LYMPHOCYTES % (AUTO) 7.6 % (21.0-51.0); MEAN CORPUSCULAR HEMOGLOBIN 32.7 pg (27.0-33.0); MEAN CORPUSCULAR HGB CONC 32.5 g/dL (32.0-36.0); MEAN CORPUSCULAR VOLUME 100.6 fL (79-99); MONOCYTES % (AUTO) 2.9 % (3.0-13.0); NUCLEATED RED BLOOD CELLS 0.1 % (0.0-0.19); PLATELET COUNT (AUTO) 46 K/uL (130-400); RED BLOOD CELL COUNT(AUTO) 3.96 MIL/uL (4.00-5.50); RED CELL DISTRIBUTION WIDTH 19.4 % (11.0-15.5); WHITE BLOOD COUNT (AUTO) 14.7 K/uL (4.8-10.8)
[2018-01-28] MEDS ORDERED: EPINEPHRINE 0.1 MG/ML 10 ML SYG ONE (14:14)
[2018-01-28] MEDS ORDERED: EPINEPHRINE 1 MG/ML 30ML VIAL IJ ONE (14:17)
[2018-01-28] MEDS ORDERED: SODIUM CHLORIDE 0.9% 100 ML IV ONE (14:18)
[2018-01-28 14:38] LABS: BILIRUBIN,TOTAL 1.9 mg/dL (0.2-1.0); POTASSIUM 4.8 mmol/L (3.5-5.1)
[2018-01-28 14:42] LABS: CREATININE 17.8 mg/dL (0.5-1.5)
== END 2018-01-28 16:20 | disposition expired ==
LOC: EDH 12:58
DX: I46.9 Cardiac arrest, cause unspecified (principal); I12.0 Hypertensive chronic kidney disease with stage 5 chronic kidney disease or end stage renal disease; E11.22 Type 2 diabetes mellitus with diabetic chronic kidney disease; J81.0 Acute pulmonary edema; N18.6 End stage renal disease; Z99.2 Dependence on renal dialysis
CPT/HCPCS: 31500; 36415; 71045; 80053; 82948; 83605; 84484; 85025; 87040; 92950; 93005; 94770; 99285; J0171 ×3; J0282; J0330; J0461; J1815; J3490 ×2; J7070